=== PATIENT | female | born 2000 | race African-American/Black ===

== ENCOUNTER 2021-01-09 00:53 | Emergency (ER) | payer MEDICAID, OTHER ==
[~2021-01-09] VITALS: Ht 165.1 cm; Wt 58.0 kg
[2021-01-09] MEDS ORDERED: IBUPROFEN 600MG TABLET PO ONE (03:45)
[2021-01-09] MEDS ORDERED: BACITRACIN ZINC OINT UDPKT TOP ONE (03:45)
[2021-01-09] MEDS ORDERED: NAPR-681 PO (04:04)
[2021-01-09 04:30] VITALS: BP 116/64
== END 2021-01-09 04:35 | disposition home or self-care (01) ==
LOC: ER 00:53
DX: S00.83XA Contusion of other part of head, initial encounter (principal); S00.81XA Abrasion of other part of head, initial encounter; W22.03XA Walked into furniture, initial encounter; Y93.89 Activity, other specified; Y92.9 Unspecified place or not applicable
CPT/HCPCS: 99282

== ENCOUNTER 2021-02-22 11:08 | Emergency (ER) | payer MEDICAID ==
[~2021-02-22] VITALS: Ht 165.1 cm; Wt 58.0 kg
[~2021-02-22 11:08] MED LIST: NAPR-681 PO
[2021-02-22] MEDS ORDERED: MAGNESIUM/ALUMINUM HYDROXIDE/SIMETHICONE 30ML UDC PO STA (13:04)
[2021-02-22] MEDS ORDERED: VISCOUS LIDOCAINE 2% 15 ML UDC PO STA (13:04)
[2021-02-22] MEDS ORDERED: DICYCLOMINE 10 MG/5 ML ORAL SYR PO STA (13:04)
[2021-02-22 13:29] LABS: COLOR URINE YELLOW (YELLOW); KETONES URINE NEGATIVE (NEGATIVE); LEUKOCYTE ESTERASE URINE 3+ (NEGATIVE); NITRITE URINE NEGATIVE (NEGATIVE); OCCULT BLOOD URINE NEGATIVE (NEGATIVE); PH URINE 7.5 (4.5-8.0); PROTEIN URINE NEGATIVE (NEGATIVE); SPECIFIC GRAVITY URINE 1.013 (1.005-1.030)
[2021-02-22 13:31] LABS: CLARITY URINE HAZY (CLEAR)
[2021-02-22 14:49] LABS: BASOPHILS % 0.5 % (0.0-2.0); EOSINOPHILS % 0.9 % (0.0-5.0); HEMATOCRIT. 38.4 % (36.0-48.0); HEMOGLOBIN. 13.3 g/dL (12.0-16.0); LYMPHOCYTES % 32.7 % (20.0-50.0); MEAN CORPUSCULAR HEMOGLOBIN 29.3 pg (28.0-32.0); MONOCYTES % 8.9 % (2.0-8.0); PLATELET 233 x1000/uL (130-400); RED BLOOD CELL COUNT 4.53 mill/uL (4.2-5.4); RED CELL DISTRIBUTION WIDTH 13.4 % (11.6-14.6)
[2021-02-22 14:57] LABS: CHLORIDE 108 mEq/L (98-107)
[2021-02-22] MEDS ORDERED: CEPH500C2 MT (15:51)
[2021-02-22 16:15] VITALS: BP 124/65
== END 2021-02-22 16:17 | disposition home or self-care (01) ==
LOC: ER 11:08
DX: N30.00 Acute cystitis without hematuria (principal); R10.33 Periumbilical pain
CPT/HCPCS: 36415; 74018; 80053; 81003; 81025; 85025; 99284